=== PATIENT | female | born 1960 | race Caucasian/White ===

== ENCOUNTER 2018-08-27 01:01 | Emergency (ER) | payer BC ==
[2018-08-27] MEDS ORDERED: SODIUM CHLORIDE 0.9% 1,000 ML IV ONE (02:17)
[2018-08-27 02:30] LABS: BASOPHILS % (AUTO) 0.6 %; EOSINOPHILS # (AUTO) 0.1 10^3/uL (0.0-0.7); HGB - HEMOGLOBIN 14.1 g/dL (12.0-16.0); LYMPHOCYTES # (AUTO) 2.4 10^3/uL (1.5-3.5); LYMPHOCYTES % (AUTO) 33.9 %; MEAN CORPUSCULAR HEMOGLOBIN 29.5 pg (27.0-31.0); MEAN CORPUSCULAR HGB CONC 34.4 g/dL (32.0-36.0); MEAN CORPUSCULAR VOLUME 85.7 fL (81.0-99.0); MEAN PLATELET VOLUME 7.9 fL (7.9-10.8); MONOCYTES # (AUTO) 0.6 10^3/uL (0.0-1.0); MONOCYTES % (AUTO) 7.9 %; NEUTROPHILS # (AUTO) 3.9 10^3/uL (1.5-6.6); NEUTROPHILS % (AUTO) 55.6 %; PLT - PLATELET COUNT 251 10^3/uL (130-450); RED BLOOD COUNT 4.76 10^6/uL (4.20-5.40); RED CELL DISTRIBUTION WIDTH 13.3 % (12.0-15.0)
--- NOTE | 2018-08-27 02:49 | ED Physician Documentation ---
History of Present Illness - Stated complaint Stated Complaint: RAPID HEART RATE - Chief complaint Chief Complaint: General - History obtained from History obtained from: Patient, Family - History of Present Illness Timing: Today - Additonal information Additional information: 57-year-old female who is recently traveled here from the [facility] has awakened early this morning feeling that her heart rate was beating fast. She wears earplugs and when she felt a rapid heart rate beating she looked at her fit bit and found that it was up to 123. She knows that her heart rate usually runs in the 60-80 range. She denies any shortness of breath associated with this and she states that she did have extra room in the plane on the way here and denies any swelling in her legs. She denies any chest pain or shortness of breath. She usually drinks as much as 2 L of fluid per day and she is here visiting with a new granddaughter and she has not been drinking the usual amount of fluids. She denies any other specific symptoms. Review of Systems Constitutional: reports: Sweats. denies: Fever, Chills Eyes: denies: Decreased vision Ears: denies: Ear pain Nose: reports: Congestion. 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 - Present Medications Home Medications: Ambulatory Orders Medication Instructions Recorded Confirmed No Known Home Medications 08/27/18 08/27/18 - Allergies Allergies/Adverse Reactions: Allergies Allergy/AdvReac Type Severity Reaction Status Date / Time No Known Drug Allergies Allergy Verified 08/27/18 01:15 - Social History Does the pt smoke?: No Smoking Status: Never smoker Does the pt drink ETOH?: Yes Does the pt have substance abuse?: No - Immunizations Immunizations are current?: Yes PD ED PE NORMAL - Vitals Vital signs reviewed: Yes (tachy and hypertensive) - General General: Alert and oriented X 3, No acute distress, Well developed/nourished - HEENT HEENT: Atraumatic, PERRL, EOMI, Ears normal, Other (dry mucous membranes ) - Neck Neck: Supple, no meningeal sign, No bony TTP - Cardiac Cardiac: No murmur, Other (tachy to 100) - Respiratory Respiratory: No respiratory distress, Clear bilaterally - Abdomen Abdomen: Soft, Non tender - Back Back: No CVA TTP, No spinal TTP - Derm Derm: Normal color, Warm and dry, No rash - Extremities Extremities: No deformity, No edema - Neuro Neuro: Alert and oriented X 3, 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, No motor deficit, No sensory deficit, Normal speech Eye Opening: Spontaneous Motor: Obeys Commands Verbal: Oriented GCS Score: 15 - Psych Psych: Normal mood, Normal affect Results - Vitals Vitals: Vital Signs - 24 hr 08/27/18 08/27/18 08/27/18 01:08 01:41 02:49 Temperature 36.4 C L Heart Rate 102 H 98 87 Respiratory 16 12 12 Rate Blood Pressure 142/127 H 146/83 H 132/82 H O2 Saturation 100 99 98 Oxygen O2 Source Room air - EKG (time done) 0110 Rate: Rate (enter#) (104) Rhythm: Sinus tachycardia, LAE Intervals: RBBB (incomplete) Compare to prior EKG: Old EKG unavailable Computer interpretation: Agree with computer - Labs Labs: Laboratory Tests 08/27/18 08/27/18 08/27/18 02:22 02:22 02:40 WBC 7.0 RBC 4.76 Hgb 14.1 Hct 40.8 MCV 85.7 MCH 29.5 MCHC 34.4 RDW 13.3 Plt Count 251 MPV 7.9 Neut # (Auto) 3.9 Lymph # (Auto) 2.4 [place] # (Auto) 0.6 Eos # (Auto) 0.1 Baso # (Auto) 0.0 Absolute Nucleated RBC 0.00 Nucleated RBC % 0.0 D-Dimer < 200.0 L Sodium 137 Potassium 3.6 Chloride 106 Carbon Dioxide 24 Anion Gap 7.0 BUN 16 Creatinine 0.9 Estimated GFR (MDRD) 65 L Glucose 109 H Calcium 8.4 L Total Bilirubin 0.6 AST 19 ALT 17 Alkaline Phosphatase 64 Troponin I Total Protein 7.2 Albumin 3.8 Globulin 3.4 Albumin/Globulin Ratio 1.1 Lipase 38 Urine Color Urine Clarity Urine pH Ur Specific [place] Urine Protein Urine Glucose (UA) Urine Ketones Urine Occult Blood Urine Nitrite Urine Bilirubin Urine Urobilinogen Ur Leukocyte Esterase Ur Microscopic Review Urine Culture Comments 08/27/18 08/27/18 02:40 03:50 WBC RBC Hgb Hct MCV MCH MCHC RDW Plt Count MPV Neut # (Auto) Lymph # (Auto) [place] # (Auto) Eos # (Auto) Baso # (Auto) Absolute Nucleated RBC Nucleated RBC % D-Dimer Sodium Potassium Chloride Carbon Dioxide Anion Gap BUN Creatinine Estimated GFR (MDRD) Glucose Calcium Total Bilirubin AST ALT Alkaline Phosphatase Troponin I < 0.04 Total Protein Albumin Globulin Albumin/Globulin Ratio Lipase Urine Color YELLOW Urine Clarity CLEAR Urine pH 6.5 Ur Specific [place] 1.010 Urine Protein NEGATIVE Urine Glucose (UA) NEGATIVE Urine Ketones NEGATIVE Urine Occult Blood NEGATIVE Urine Nitrite NEGATIVE Urine Bilirubin NEGATIVE Urine Urobilinogen 0.2 (NORMAL) Ur Leukocyte Esterase NEGATIVE Ur Microscopic Review NOT INDICATED Urine Culture Comments NOT INDICATED Procedures - IVC sono (time) 0210 Bedside IVC sono: IVC measures (cm) (1.03), IVC collapsed c insp (cm) (complete), Dehydration (est 1.5 liter deficit) PD MEDICAL DECISION MAKING - ED course Complexity details: reviewed results, re-evaluated patient, considered differential, d/w patient, d/w family ED course: 57-year-old female with recent plane travel has awakened with rapid heart rate and here in the emerge department after interrogation of the inferior vena cava she is determined to be dehydrated. She does have dry mucous membranes and admits now to thirst. She does admit she has not been drinking adequate amount of fluid. I thought it important to check her d-dimer for possibility of pulmonary embolism and this was negative. She is administered a liter of saline. Departure - Departure Disposition: 01 Home, Self Care Clinical Impression: Dehydration Condition: Stable Instructions: ED Dehydration Follow-Up: Your, doctor [Other]
[2018-08-27 02:54] LABS: ALBUMIN 3.8 g/dL (3.2-5.5); ALBUMIN/GLOBULIN RATIO 1.1 (1.0-2.2); BILIRUBIN,TOTAL 0.6 mg/dL (0.2-1.0); CALCIUM 8.4 mg/dL (8.5-10.3); CREATININE 0.9 mg/dL (0.4-1.0); TOTAL PROTEIN 7.2 g/dL (6.7-8.2)
[2018-08-27 03:56] LABS: BILIRUBIN,URINE NEGATIVE (NEGATIVE); GLUCOSE, URINE (UA) NEGATIVE (NEGATIVE); KETONES,URINE (UA) NEGATIVE (NEGATIVE); LEUKOCYTE ESTERASE, URINE NEGATIVE (NEGATIVE); NITRITE,URINE NEGATIVE (NEGATIVE); OCCULT BLOOD,URINE NEGATIVE (NEGATIVE); PH,URINE 6.5 PH (5.0-7.5); PROTEIN,URINE NEGATIVE (NEGATIVE); UROBILINOGEN,URINE 0.2 (NORMAL) E.U./dL (NORMAL)
[2018-08-27 04:02] LABS: CLARITY,URINE CLEAR (CLEAR)
[2018-08-27 04:20] VITALS: BP 132/73
== END 2018-08-27 04:19 | disposition home or self-care (01) ==
LOC: ED 01:01
DX: E86.0 Dehydration (principal); R00.0 Tachycardia, unspecified
CPT/HCPCS: 36415; 80053; 81001; 81003; 83690; 84484; 85025; 85379; 87086; 99283